=== PATIENT | female | born 1940 | race Caucasian/White ===

== ENCOUNTER → 2018-03-27 15:58 | Outpatient (CLI) | payer MEDICARE, OTHER, SELFPAY ==
--- NOTE | 2018-03-27 13:30 | CER_PTH ---
PATIENT: ASTER RANDOLPH LOC: [facility] U#:[id number] AGE/SX: 84/F ROOM: RE03/27/[address]: Dr. Ramon Sandhu MD : [id number] BED: DIS: SPEC #: [id number] RECD: 03/27/18 15:47 STATUS: JUAN MANUEL MARJORIE #: [id number] VICKIE: 03/27/18 13:[address]: Ramon Sandhu DEPT: SURGICAL PATHOLOGY RECD BY: Georgi Fierro ENTERED: 03/28/18 11:28 SP TYPE: CERV OTHR DR: Dr. Lian Newell MD Tissues: Uterine cervix, NOS Procedures: Surgery Specimen Level IV HEADER OPERATION: Excision cervical polyp PRE-OP DIAGNOSIS: N84.1 TISSUE SUBMITTED: Cervical polyp MICROSCOPIC DIAGNOSIS Cervical polyp, biopsy: Fragments of inflamed benign endocervical polyp. SJ:jewel 03/29/18 MICROSCOPIC DESCRIPTION Slides are reviewed. GROSS DESCRIPTION Received in fixative is one container labeled with the patient's name and designated cervical polyp. The specimen consists of multiple irregular fragments of mock-pink polypoid tissue that in aggregate measure 3 x 3 x 1 cm. The larger polypoid pieces are bisected. The entire specimen is submitted in three cassettes. / SJ:jewel 03/28/18 TC:5 [facility]: [id number]
== END ==
PROVIDERS: Family Provider Internal Medicine; PCP Internal Medicine; Referring Provider Obstetrics & Gynecology; Visit Provider Obstetrics & Gynecology
DX: N84.1 Polyp of cervix uteri (principal)
CPT/HCPCS: 88305